=== PATIENT | female | born 1990 | race Caucasian/White ===

== ENCOUNTER → 2019-01-06 | Outpatient (CLI) | payer OTHER ==
--- NOTE | 2019-01-06 15:13 | KCIC ---
EXAM: Bilateral knees, standing view; pelvis, single view; cervical spine, single view. HISTORY: Pain. COMPARISON: None. FINDINGS: Bilateral knees: A standing frontal view both knees is obtained. There is no fracture, dislocation or subluxation. There is no joint space narrowing. There is no lytic or sclerotic osseous lesion. Pelvis: A frontal view of the pelvis is obtained. There is an incidental transitional lumbosacral segment. There is no fracture, dislocation or subluxation. The femoral heads are normal in configuration. Cervical spine: Lateral view the cervical spine is obtained. There is cervical kyphosis due to flexion. There is no listhesis. The vertebral woo are normal in height and the disc spaces are preserved. IMPRESSION: No acute osseous finding. Electronically signed by: Sonam Warren MD (01/06/2019 3:10 PM) [id number]
--- NOTE | 2019-01-06 16:23 | KCIC ---
FOOT BILAT 2V Clinical Indication: Chronic pain, unspecified joint. Comparison: None. Findings: Single view of the right and left foot. Images are labeled as AP but are oblique views. In the right foot the joint spaces are maintained. There is no acute fracture. The mineralization is normal. No bony erosion is seen. No obvious soft tissue swelling. In the left foot the joint spaces are maintained. There is no acute fracture. The mineralization is normal. No bony erosion is seen. No obvious soft tissue swelling. IMPRESSION: No acute bone abnormality. Electronically signed by: Abdelrahman Schwartz MD (01/06/2019 4:20 PM) [id number]
--- NOTE | 2019-01-06 16:46 | KCIC ---
HAND BILAT 2V Clinical Indication: Chronic pain and unspecified joint. Comparison: None. Findings: AP views of the right and left hand. Right: Joint spaces are maintained. No acute fracture. No soft tissue swelling. There is periarticular osteopenia. There is radiocarpal joint space narrowing. 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 Consider dedicated 3 view wrist radiographs. Left: Findings are identical. IMPRESSION: No acute bone abnormality. Please see above discussion. Electronically signed by: Abdelrahman Schwartz MD (01/06/2019 4:43 PM) [id number]
== END | disposition home or self-care (01) ==
LOC: KCIC 14:34
PROVIDERS: ATTEND Internal Medicine Rheumatology
DX: M40.292 Other kyphosis, cervical region (principal); M85.841 Other specified disorders of bone density and structure, right hand; G89.29 Other chronic pain
CPT/HCPCS: 72020; 72170; 73120; 73565; 73620